=== PATIENT | male | born 1975 | race Caucasian/White ===

== ENCOUNTER 2016-06-12 10:09 | Inpatient (IN) | payer OTHER ==
[~2016-06-12] VITALS: Ht 188 cm; Wt 71.2 kg
--- NOTE | ~2016-06-12 | EKG ---
[place], [place] ELECTROCARDIOGRAM REPORT NAME: NANNETTE ERVIN UNIT #: [id number] ROOM: 422 DOCTOR: JESS POLANCO MD BIRTHDATE: [birth year] DOS: 06/12/2016 TIME: 11:24. Normal sinus rhythm at rate 75. Early repolarization change. Normal EKG. JESS POLANCO MD CM:EKGRPT:ELECTROCARDIOGRAM REPORT [id number] JESS POLANCO MD
--- NOTE | ~2016-06-12 | CON ---
[place], [place] REPORT OF CONSULTATION NAME: NANNETTE ERVIN UNIT #: [id number] ROOM: 422 DOCTOR: RONALD SMITH ED.D (MJ) BIRTHDATE: [birth year] DOS: 06/14/2016 HISTORY OF PRESENT ILLNESS: The patient is a 41-year-old male referred by the hospitalist for psychological evaluation. At the present time, he is a [facility] patient on the 4th floor at [facility]. He states he is presently working at the [employer]. His medical history is pertinent for bipolar 1, alcohol dependence and sciatica. His medications include ProAir, Neurontin, Ativan, Ritalin, Naprosyn, Risperdal, Percocet and Zoloft. He states that he drinks 15-20 beers a day and smokes 3 packs of cigarettes per day plus he uses snuff. This patient was awake, alert and oriented in all 3 spheres. He denies any suicidal ideation or plan, but does get depressed because he relapsed. He has been in the [facility] before and did quite well and was in sobriety for quite sometime and then relapsed after a problem with his ex-girlfriend. I worked with him on guilt issues and getting back to AA meetings. I did talk to [facility] staff and they will setup his meetings with AA. He also followed with Dr. Yoo in the past. In addition, he has [facility] who is his case finisher along with Dr. Abraham, who is his psychiatrist. DIAGNOSES: 1. Bipolar 1, mixed. 2. Alcohol dependence. Thank you very much for this referral. RONALD SMITH ED.D CM:CONSTR:REPORT OF CONSULTATION 1012 06/15/16 0225 interface
[~2016-06-12 10:09] MED LIST: 'PARAFON FORTE500 M1 PO; ATIVAN1 MG PO; BENADRYL25 MG PO; BENADRYL50 MG PO; CELEXA10 MG PO; CHLORDIAZEPOXID25 M1 PO; COGENTIN0.5 MG PO; CYCLOBENZAPRINE10 MG PO; DEPAKOTE500 MG; FLEXERIL5 MG PO; FLUVOXAMINE50 MG PO; GEODON40 MG PO; HALOPERIDOL5 MG PO; HYDROCODONE BIT1 T11 PO; LATU40TA PO; LIDOCAINE VISC100 M2 MM; LORAZEPAM1 MG PO; MONTELUKAST SOD10 MG PO; MOTRIN800 MG PO; Motrin,Rufen800 MG PO; NAPROXEN500 M1 PO; NEURONTIN300 MG PO; NEURONTIN600 MG PO; NORCO 5-325 TA1 EACH PO; PERCOCET 325 MG1 TA5 PO; PERCOCET 325 MG1 TA7 PO; PREDNISONE10 MG PO; PROAIR HFA0.09 MG/AC INH; RISPERDAL0.5 MG PO; RISPERDAL1 M1 PO; RISPERDAL2 M1 PO; RISPERDAL4 MG PO; RITALIN PO; TORADOL10 MG PO; TRAMADOL HCL50 MG PO; VISTARIL50 MG PO
[2016-06-12] MEDS ORDERED: TIZANIDINE HCL4 MG PO (10:12)
[2016-06-12 10:16] VITALS: BP 116/84
[2016-06-12 10:36] LABS: BILIRUBIN 1+ (NEGATIVE); BLOOD TRACE-INTACT (NEGATIVE); CLARITY CLEAR (CLEAR); COLOR YELLOW (YELLOW); GLUCOSE NEGATIVE (NEGATIVE); KETONE TRACE (NEGATIVE); LEUKO ESTERASE NEGATIVE (NEGATIVE); NITRITE NEGATIVE (NEGATIVE); PH 5.5 (5.0-9.0); PROTEIN 1+ (NEGATIVE); SPECIFIC GRAVITY >= 1.030 (1.005-1.030); UROBILINOGEN 0.2 E.U./dl (0.2-1.0)
[2016-06-12 10:48] LABS: MUCOUS 1+; WBC 0-2 wbc/hpf (0-5)
[2016-06-12 10:49] LABS: BACTERIA TRACE; URINE REFLEX COMMENT NO (NO)
[2016-06-12 10:59] LABS: BASO # 0.1 10*3/uL (0.0-0.1); BASO % 0.5 % (0.0-1.0); EOS # 0.1 10*3/uL (0.0-0.4); EOS % 1.1 % (1.0-4.0); HEMATOCRIT 46.3 % (42.0-52.0); HEMOGLOBIN 16.2 g/dl (14.0-18.0); LYMPH # 1.1 10*3/uL (1.3-4.4); LYMPH % 9.2 % (27.0-41.0); MEAN CELL VOLUME 93.9 fl (80.0-94.0); MEAN CORPUSCULAR HGB 32.9 pg (27.0-31.0); MEAN PLATELET VOLUME 9.3 fl (9.6-12.3); MONO # 0.6 10*3/uL (0.1-1.0); MONO % 5.3 % (3.0-9.0); NEUT % 83.6 % (47.0-73.0); PLATELET COUNT AUTOMATED 325 10*3/uL (130-400); RED BLOOD COUNT 4.93 10*6/uL (4.50-5.90); RED CELL DISTRI WIDTH 14.2 % (0-14.5); WHITE BLOOD COUNT 11.9 10*3/uL (4.8-10.8)
[2016-06-12 11:07] LABS: INTERNATIONAL NORM RATIO 0.9 (2.0-3.5)
[2016-06-12 11:15] LABS: ALBUMIN 4.2 gm/dl (3.1-4.5); ALKALINE PHOSPHATASE 67 U/L (45-117); BILIRUBIN, TOTAL 1.1 mg/dl (0.2-1.0); BUN 12 mg/dl (7-24); CARBON DIOXIDE 25 mmol/L (21-32); CHLORIDE 102 mmol/L (98-107); EST GLOM FILT AFRICAN AMERICAN > 60 ml/min; GLUCOSE 98 mg/dL (65-99); MAGNESIUM 2.1 mg/dL (1.5-2.1); SGOT/AST 49 IU/L (3-35); SGPT/ALT 43 U/L (12-78); SODIUM 140 mmol/L (136-145); TOTAL PROTEIN 7.6 gm/dL (6.4-8.2)
[2016-06-12 11:17] LABS: TROPONIN I < 0.015 ng/ml (<0.045)
[2016-06-12 11:21] LABS: THYROID STIM HORMONE (HS) 0.594 uIU/ml (0.358-4.75)
[2016-06-12] MEDS ORDERED: NEURONTIN800 MG PO (14:43)
[2016-06-12] MEDS ORDERED: PERCOCET 325 MG1 TA3 PO (14:45)
[2016-06-12] MEDS ORDERED: ZOLOFT100 MG PO (14:45)
[2016-06-12] MEDS ORDERED: EC NAPROSYN500 MG PO (14:47)
[2016-06-12] MEDS ORDERED: PROVENTIL0.09 MG/A1 INH (14:49)
[2016-06-12] MEDS ORDERED: ATIVAN1 MG PO (14:50)
[2016-06-12 16:00] VITALS: BP 130/73
[2016-06-12 16:53] LABS: URINE AMPHETAMINES < 1000 (1000ng/ml); URINE BARBITURATES < 200 (200ng/ml); URINE COCAINE < 300 (300ng/ml)
[2016-06-12 20:00] VITALS: BP 134/70
[2016-06-13] VITALS: BP 111/50
[2016-06-13 04:00] VITALS: BP 114/78
[2016-06-13 08:00] VITALS: BP 109/61
[2016-06-13 12:00] VITALS: BP 136/84
[2016-06-13 16:00] VITALS: BP 118/84
[2016-06-13] MEDS ORDERED: AMOXICILLIN500 M3 PO (17:41)
[2016-06-13 20:00] VITALS: BP 122/76
[2016-06-14] VITALS: BP 106/71
[2016-06-14 06:15] LABS: ALBUMIN 3.3 gm/dl (3.1-4.5); ALKALINE PHOSPHATASE 57 U/L (45-117); BILIRUBIN, TOTAL 0.8 mg/dl (0.2-1.0); BUN 10 mg/dl (7-24); CARBON DIOXIDE 29 mmol/L (21-32); CHLORIDE 109 mmol/L (98-107); EST GLOM FILT AFRICAN AMERICAN > 60 ml/min; GLUCOSE 98 mg/dL (65-99); POTASSIUM 3.8 mmol/L (3.5-5.1); SGOT/AST 28 IU/L (3-35); SGPT/ALT 40 U/L (12-78); SODIUM 140 mmol/L (136-145); TOTAL PROTEIN 6.1 gm/dL (6.4-8.2)
[2016-06-14 06:18] LABS: BASO # 0.1 10*3/uL (0.0-0.1); BASO % 0.5 % (0.0-1.0); EOS # 0.3 10*3/uL (0.0-0.4); EOS % 2.9 % (1.0-4.0); LYMPH # 2.1 10*3/uL (1.3-4.4); LYMPH % 22.2 % (27.0-41.0); MEAN CORPUSCULAR HGB CONC 33.9 g/dl (33.0-37.0); MEAN PLATELET VOLUME 10.2 fl (9.6-12.3); MONO # 0.7 10*3/uL (0.1-1.0); MONO % 7.6 % (3.0-9.0); NEUT # 6.1 10*3/uL (2.3-7.9); NEUT % 66.6 % (47.0-73.0); PLATELET COUNT AUTOMATED 235 10*3/uL (130-400); RED BLOOD COUNT 4.06 10*6/uL (4.50-5.90); WHITE BLOOD COUNT 9.2 10*3/uL (4.8-10.8)
[2016-06-14 06:25] LABS: HEMATOCRIT 39.5 % (42.0-52.0); HEMOGLOBIN 13.4 g/dl (14.0-18.0); MEAN CELL VOLUME 97.3 fl (80.0-94.0)
[2016-06-14 08:00] VITALS: BP 90/60
[2016-06-14 16:00] VITALS: BP 113/80
[2016-06-14 20:00] VITALS: BP 119/89
[2016-06-15] VITALS: BP 102/61
[2016-06-15 06:03] LABS: BASO # 0.1 10*3/uL (0.0-0.1); BASO % 0.6 % (0.0-1.0); EOS # 0.3 10*3/uL (0.0-0.4); EOS % 3.7 % (1.0-4.0); HEMATOCRIT 39.8 % (42.0-52.0); LYMPH # 2.1 10*3/uL (1.3-4.4); LYMPH % 23.8 % (27.0-41.0); MEAN CELL VOLUME 98.5 fl (80.0-94.0); MEAN CORPUSCULAR HGB 32.2 pg (27.0-31.0); MEAN CORPUSCULAR HGB CONC 32.7 g/dl (33.0-37.0); MONO # 0.7 10*3/uL (0.1-1.0); NEUT # 5.7 10*3/uL (2.3-7.9); NEUT % 63.6 % (47.0-73.0); PLATELET COUNT AUTOMATED 238 10*3/uL (130-400); RED BLOOD COUNT 4.04 10*6/uL (4.50-5.90); RED CELL DISTRI WIDTH 14.1 % (0-14.5)
[2016-06-15 08:00] VITALS: BP 104/80
[2016-06-15] MEDS ORDERED: FAMOTIDINE20 M1 PO (08:26)
[2016-06-15] MEDS ORDERED: PANTOPRAZOLE SO40 MG PO (08:26)
[2016-06-15] MEDS ORDERED: ATARAX,VISTARIL50 MG PO (08:26)
[2016-06-15] MEDS ORDERED: TRAZODONE50 MG PO (08:26)
[2016-06-15] MEDS ORDERED: ZOFRAN 4 MG ED2 TAB PO (08:26)
[2016-06-15 12:00] VITALS: BP 125/85
== END 2016-06-15 13:30 | disposition home or self-care (01) | DRG 897 ==
LOC: ED 10:09 → EDHOLD 13:49 → 4E 14:07
PROVIDERS: Emergency Medicine; Internal Medicine; Internal Medicine Hospice and Palliative Medicine; Student in an Organized Health Care Education/Training Program
DX: F10.230 Alcohol dependence with withdrawal, uncomplicated (principal); F25.9 Schizoaffective disorder, unspecified; D53.9 Nutritional anemia, unspecified; R10.13 Epigastric pain; F41.9 Anxiety disorder, unspecified; R00.0 Tachycardia, unspecified; D72.829 Elevated white blood cell count, unspecified; J45.909 Unspecified asthma, uncomplicated; F31.9 Bipolar disorder, unspecified; F17.200 Nicotine dependence, unspecified, uncomplicated; F12.10 Cannabis abuse, uncomplicated; K04.7 Periapical abscess without sinus; G89.29 Other chronic pain; M54.42 Lumbago with sciatica, left side; F60.9 Personality disorder, unspecified; Z84.89 Family history of other specified conditions; Z79.899 Other long term (current) drug therapy

== ENCOUNTER 2016-08-17 15:48 | Emergency (ER) | payer OTHER ==
[~2016-08-17] VITALS: Ht 187.9 cm; Wt 77.1 kg
[~2016-08-17 15:48] MED LIST changes: +AMOXICILLIN500 M3 PO; +ATARAX,VISTARIL50 MG PO; +EC NAPROSYN500 MG PO; +FAMOTIDINE20 M1 PO; +NEURONTIN800 MG PO; +PANTOPRAZOLE SO40 MG PO; +PERCOCET 325 MG1 TA3 PO; +PROVENTIL0.09 MG/A1 INH; +TIZANIDINE HCL4 MG PO; +TRAZODONE50 MG PO; +ZOFRAN 4 MG ED2 TAB PO; +ZOLOFT100 MG PO
[2016-08-17] MEDS ORDERED: PERCOCET 325 MG1 TA2 PO (16:38)
[2016-08-17] MEDS ORDERED: CEPHALEXIN500 M1 PO (17:09)
[2016-08-18] MEDS ORDERED: RISPERDAL2 M1 PO (16:37)
== END 2016-08-17 16:43 | disposition home or self-care (01) ==
LOC: ED 15:48
DX: T23.201A Burn of second degree of right hand, unspecified site, initial encounter (principal); T23.202A Burn of second degree of left hand, unspecified site, initial encounter; F17.210 Nicotine dependence, cigarettes, uncomplicated; Z79.899 Other long term (current) drug therapy; X08.8XXA Exposure to other specified smoke, fire and flames, initial encounter; Y93.G2 Activity, grilling and smoking food; Y92.023 Bedroom in mobile home as the place of occurrence of the external cause; Y99.9 Unspecified external cause status

== ENCOUNTER 2016-08-18 16:18 | Emergency (ER) | payer OTHER ==
[~2016-08-18] VITALS: Ht 187.9 cm; Wt 77.1 kg
[~2016-08-18 16:18] MED LIST changes: +CEPHALEXIN500 M1 PO; +PERCOCET 325 MG1 TA2 PO
[2016-08-18] MEDS ORDERED: RISPERDAL2 M1 PO (16:37)
== END 2016-08-18 17:19 | disposition home or self-care (01) ==
LOC: ED 16:18
DX: T23.202D Burn of second degree of left hand, unspecified site, subsequent encounter (principal); T23.201D Burn of second degree of right hand, unspecified site, subsequent encounter; F17.210 Nicotine dependence, cigarettes, uncomplicated; F12.10 Cannabis abuse, uncomplicated; Z79.899 Other long term (current) drug therapy; X08.8XXD Exposure to other specified smoke, fire and flames, subsequent encounter

== ENCOUNTER → 2016-08-21 | Outpatient (CLI) | payer OTHER | LOC: WOUNDCARE 02:06 | DX: T23.6 Corrosion of second degree of wrist and hand (principal); T32.0 Corrosions involving less than 10% of body surface; K21.9 Gastro-esophageal reflux disease without esophagitis; M19.90 Unspecified osteoarthritis, unspecified site; F32.9 Major depressive disorder, single episode, unspecified; J45.909 Unspecified asthma, uncomplicated; F12.10 Cannabis abuse, uncomplicated; F41.9 Anxiety disorder, unspecified; F17.210 Nicotine dependence, cigarettes, uncomplicated; Z72.89 Other problems related to lifestyle; X08.8XXD Exposure to other specified smoke, fire and flames, subsequent encounter ==

== ENCOUNTER → 2016-08-28 | Outpatient (CLI) | payer OTHER ==
--- NOTE | ~2016-08-28 | PR ---
[place], [place] PROGRESS NOTE NAME: NANNETTE ERVIN [facility] #: [id number] UNIT #: [id number] ROOM: DOCTOR: CHASITY WeiSILVINA BIRTHDATE: [birth year] DOS: 08/28/2016 LATE ENTRY NOTE CHIEF COMPLAINT: Liu of the hands. HISTORY OF PRESENT ILLNESS: This is a 41-year-old male who was seen approximately a week ago for multiple second-degree liu of his bilateral hands, which occurred while he fell asleep smoking a cigarette. He had over multiple wounds on several of his digits that were seen last week for the first time, several of the blistered areas had remained intact and were left alone. There was one area that was debrided that had already opened up and left necrotic tissue lying there that was debrided last week, otherwise the blisters have remained intact since last week and the patient comes in without any specific new complaints. He is using TheraHoney and Adaptic. We did want home health to come and see the patient. However, since the patient is not homebound, he was not felt to be a candidate for home therapy, so he is doing the dressing changes on his own. He also is a smoker and continues to smoke. OBJECTIVE: VITAL SIGNS: Stable. Temperature 97.8, pulse 100, respirations 20, blood pressure is 118/80. He has several different wounds. Wound #1 is located on the second digit of the left hand and is measuring 2.6 x 2.5 x 0.1, it is remaining intact and is much smaller. The blistered area, there is no sign of infection. Wound #2 is also measuring smaller at 2.2 x 2.5 x 0.1 and that is located on the third digit of the left hand. Wound #3 is located on the left hand and is on the fourth digit and that wound is also measuring smaller at 3 x 3 x 0.1. Wound #4 is measuring smaller on the fifth digit of the left hand, it is measuring 1.2 x 1.1 x 0.1, that looks good. Wound #6 is located on the tip of the right hand second digit and that is measuring 2 x 3.8 x 0.1 and is remaining intact. Wound #7 is located on the third digit of the right hand and is measuring slightly smaller at 7 x 5.5 x 0.1. Wound #8 is measuring smaller at 3.4 x 3 x 0.1, looks good. Wound #9 is also measuring the same and the area is still left pretty much intact at 5.2 x 2.5 x 0.1. No procedure was done. ASSESSMENT AND PLAN: Multiple second-degree liu of bilateral hands. We will continue to keep the blistered areas intact as much as possible. Continue with TheraHoney and Adaptic. The patient is to be off of work until he has had more healing. Follow up in one week. [place], [place] PROGRESS NOTE NAME: NANNETTE ERVIN UNIT #: [id number] ROOM: DOCTOR: SILVINA GASPAR M.D. BIRTHDATE: [birth year] SILVINA GASPAR MD CM:SHEILA [id number] SILVINA GASPAR M.D. 09/18/16 1138 interface
== END ==
LOC: WOUNDCARE 02:13
DX: T23.231D Burn of second degree of multiple right fingers (nail), not including thumb, subsequent encounter (principal); T23.232D Burn of second degree of multiple left fingers (nail), not including thumb, subsequent encounter; F17.210 Nicotine dependence, cigarettes, uncomplicated; T31.0 Burns involving less than 10% of body surface; X08.8XXD Exposure to other specified smoke, fire and flames, subsequent encounter

== ENCOUNTER → 2016-09-04 | Outpatient (CLI) | payer OTHER | LOC: WOUNDCARE 03:37 | DX: T23.231D Burn of second degree of multiple right fingers (nail), not including thumb, subsequent encounter (principal); T23.232D Burn of second degree of multiple left fingers (nail), not including thumb, subsequent encounter; X08.8XXD Exposure to other specified smoke, fire and flames, subsequent encounter ==

== ENCOUNTER → 2016-09-18 | Outpatient (CLI) | payer OTHER ==
--- NOTE | ~2016-09-18 | PR ---
[place], [place] PROGRESS NOTE NAME: NANNETTE ERVIN [facility] #: [id number] UNIT #: [id number] ROOM: DOCTOR: CHASITY WeiSILVINA BIRTHDATE: [birth year] DOS: 09/18/2016 CHIEF COMPLAINT: Followup of liu. HISTORY OF PRESENT ILLNESS: The patient has suffered multiple liu to both of his hands while he fell asleep smoking cigarettes. He has [facility] 4 weeks now. He comes in today and states that his wounds appear healed. They are not open, not draining and are doing quite well. He does complain of some funny feeling in the third digit on his right hand. He states at times that objects are difficult to slat pickler and squeeze and he has some difficulty with fine motor skills on this right hand. OBJECTIVE: VITAL SIGNS: Temperature is 98.5, pulse 90, respirations 20 and blood pressure is 110/80. SKIN: The wounds are healed and look nice and with a very minimal scar noted on the third digit of the right hand, but otherwise it looks very good. ASSESSMENT AND PLAN: We will go ahead and discharge the patient. He can use a moisturizer as needed and I did suggest that he perhaps get some sort of a therapy ball to squeeze as many times a day as he can and to consider doing some outpatient physical therapy for this. Otherwise, the wounds are healed and we will discharge the patient from the [facility] Clinic. SILVINA GASPAR MD CM:SHEILA [phone] SILVINA GASPAR M.D. 09/18/16 113 interface
== END ==
LOC: WOUNDCARE 02:48
DX: T23.231D Burn of second degree of multiple right fingers (nail), not including thumb, subsequent encounter (principal); T23.232D Burn of second degree of multiple left fingers (nail), not including thumb, subsequent encounter; F17.210 Nicotine dependence, cigarettes, uncomplicated; X08.8XXD Exposure to other specified smoke, fire and flames, subsequent encounter

== ENCOUNTER 2016-12-02 18:07 | Emergency (ER) | payer OTHER ==
[~2016-12-02] VITALS: Ht 187.9 cm; Wt 77.1 kg
[2016-12-02] MEDS ORDERED: CLINDAMYCIN150 MG PO (18:37)
== END 2016-12-02 22:49 | disposition home or self-care (01) ==
LOC: ED 18:07
DX: S01.511A Laceration without foreign body of lip, initial encounter (principal); S80.212A Abrasion, left knee, initial encounter; S80.812A Abrasion, left lower leg, initial encounter; S60.811A Abrasion of right wrist, initial encounter; S40.811A Abrasion of right upper arm, initial encounter; F17.200 Nicotine dependence, unspecified, uncomplicated; F12.10 Cannabis abuse, uncomplicated; J45.909 Unspecified asthma, uncomplicated; Z79.899 Other long term (current) drug therapy; W19.XXXA Unspecified fall, initial encounter; Y93.89 Activity, other specified; Y92.89 Other specified places as the place of occurrence of the external cause; Y99.9 Unspecified external cause status

== ENCOUNTER 2017-01-19 18:08 | Emergency (ER) | payer OTHER ==
[~2017-01-19] VITALS: Ht 187.9 cm; Wt 77.1 kg
--- NOTE | ~2017-01-19 | EKG ---
[place], [place] ELECTROCARDIOGRAM REPORT NAME: NANNETTE ERVIN UNIT #: [id number] ROOM: DOCTOR: JOJO GOLDSTEIN,DAVID BIRTHDATE: [birth year] DOS: 01/19/2017 TIME: 1812 hours. IMPRESSION: 1. Sinus rhythm, sinus tachycardia. 2. Right atrial enlargement. 3. Nonspecific ST-T changes. DAVID URIBE MD CM:EKGRPT:ELECTROCARDIOGRAM REPORT [id number] DAVID URIBE MD
[~2017-01-19 18:08] MED LIST changes: +CLINDAMYCIN150 MG PO
[2017-01-19 18:21] LABS: BASO % 0.2 % (0.0-1.0); EOS # 0.3 10*3/uL (0.0-0.4); EOS % 2.2 % (1.0-4.0); HEMATOCRIT 39.8 % (42.0-52.0); HEMOGLOBIN 13.5 g/dl (14.0-18.0); LYMPH # 2.2 10*3/uL (1.3-4.4); LYMPH % 17.5 % (27.0-41.0); MEAN CELL VOLUME 96.6 fl (80.0-94.0); MEAN CORPUSCULAR HGB 32.8 pg (27.0-31.0); MEAN CORPUSCULAR HGB CONC 33.9 g/dl (33.0-37.0); MEAN PLATELET VOLUME 9.2 fl (9.6-12.3); MONO # 0.8 10*3/uL (0.1-1.0); MONO % 6.6 % (3.0-9.0); NEUT # 9.2 10*3/uL (2.3-7.9); NEUT % 73.1 % (47.0-73.0); PLATELET COUNT AUTOMATED 310 10*3/uL (130-400); RED BLOOD COUNT 4.12 10*6/uL (4.50-5.90); RED CELL DISTRI WIDTH 13.8 % (0-14.5); WHITE BLOOD COUNT 12.6 10*3/uL (4.8-10.8)
[2017-01-19 18:31] LABS: ACT PARTIAL THROMBO TIME 26.3 SECONDS (20.8-31.5); INTERNATIONAL NORM RATIO 0.9 (2.0-3.5)
[2017-01-19 18:35] LABS: LIPASE 91 U/L (73-393)
[2017-01-19 18:37] LABS: ALBUMIN 3.6 gm/dl (3.1-4.5); ALKALINE PHOSPHATASE 63 U/L (45-117); BUN 7 mg/dl (7-24); CHLORIDE 105 mmol/L (98-107); CREATININE 0.84 mg/dL (0.70-1.30); POTASSIUM 3.9 mmol/L (3.5-5.1); SGOT/AST 18 IU/L (3-35); SGPT/ALT 23 U/L (12-78); SODIUM 138 mmol/L (136-145); TOTAL PROTEIN 7.2 gm/dL (6.4-8.2)
[2017-01-19 18:38] LABS: ETHYL ALCOHOL < 3.0 mg/dl (<3); TROPONIN I < 0.015 ng/ml (<0.045)
== END 2017-01-19 19:15 | disposition left against medical advice (07) ==
LOC: ED 18:08
PROVIDERS: Emergency Medicine
DX: R07.9 Chest pain, unspecified (principal); F17.200 Nicotine dependence, unspecified, uncomplicated; J45.909 Unspecified asthma, uncomplicated; Z79.899 Other long term (current) drug therapy

== ENCOUNTER 2017-03-12 15:36 | Inpatient (IN) | payer OTHER ==
[~2017-03-12] VITALS: Ht 187.9 cm; Wt 76.3 kg
--- NOTE | ~2017-03-12 | CON ---
[place], [place] REPORT OF CONSULTATION NAME: NANNETTE ERVIN UNIT #: [id number] ROOM: [place] [address] DOCTOR: RONALD SMITH ED.DMJ) BIRTHDATE: [birth year] DOS: 03/13/2017 The patient is a 42-year-old male referred by the hospitalist following a threat to commit suicide. This patient is presently in the Intensive Care Unit at [facility]. He is on SSI. His medical history is pertinent for bipolar I disorder, asthma, degenerative joint disease, degenerative disk disease, alcohol dependence, asthma. His medications include trazodone, Zoloft, Risperdal, Ritalin, Ativan, Proventil, ProAir and gabapentin. He has been drinking 20-30 beers per day. He also smokes marijuana. In addition, he smokes 3 packs of cigarettes per day. This patient was awake, alert and oriented in all three spheres. He was suicidal, threatening to shoot himself, but today, he states he is not really suicidal, but needs to return to work. He is clearly going to go into withdrawal because of the amount of alcohol he has been drinking and he is under a pink slip because he was suicidal. He follows with Boo Dorado, a family service caseworker at the counseling center along with Dr. Abraham, who is a psychiatrist at the counseling center. The patient's family physician is Dr. Neal. The patient has been drinking significant amounts recently and is not taking his medications for his bipolar disorder. I did suggest to the nursing service as well as the hospitalist team that he needed to stay until he withdrew from alcohol. I did speak with the [facility] and they will most likely accept him as a patient again. He clearly cannot be discharged at this point in time because of the amounts of benzodiazepines he is taking to prevent withdrawal. He needs to remain here for several more days until he is completely detoxed at which point he should follow up outpatient for his mental health and drug and alcohol counseling. DIAGNOSES: 1. Bipolar 1 - mixed. 2. Alcohol dependence. RECOMMENDATIONS: 1. In my opinion, the pink slip should be continued until he is more medically stable. 2. The patient would benefit from the [facility]. Thank you very much for this consult. [place], [place] REPORT OF CONSULTATION NAME: NANNETTE ERVIN UNIT #: [id number] ROOM: [place] [address] DOCTOR: RONALD SMITH ED.D) BIRTHDATE: [birth year] RONALD SMITH ED.D CM:CONSTR:REPORT OF CONSULTATION 1112 03/13/17 1159 interface
[2017-03-12 15:49] VITALS: BP 123/83
[2017-03-12 16:24] LABS: BASO % 0.4 % (0.0-1.0); EOS # 0.4 10*3/uL (0.0-0.4); EOS % 3.8 % (1.0-4.0); HEMATOCRIT 40.9 % (42.0-52.0); LYMPH # 1.5 10*3/uL (1.3-4.4); LYMPH % 13.8 % (27.0-41.0); MEAN CELL VOLUME 94.5 fl (80.0-94.0); MEAN CORPUSCULAR HGB 32.3 pg (27.0-31.0); MEAN CORPUSCULAR HGB CONC 34.2 g/dl (33.0-37.0); MEAN PLATELET VOLUME 9.5 fl (9.6-12.3); MONO # 0.7 10*3/uL (0.1-1.0); MONO % 6.3 % (3.0-9.0); NEUT # 8.1 10*3/uL (2.3-7.9); PLATELET COUNT AUTOMATED 148 10*3/uL (130-400); RED BLOOD COUNT 4.33 10*6/uL (4.50-5.90); RED CELL DISTRI WIDTH 15.2 % (0-14.5); WHITE BLOOD COUNT 10.8 10*3/uL (4.8-10.8)
[2017-03-12 16:49] LABS: ALBUMIN 3.4 gm/dl (3.1-4.5); ALKALINE PHOSPHATASE 81 U/L (45-117); BUN 8 mg/dl (7-24); CHLORIDE 109 mmol/L (98-107); CREATININE 0.68 mg/dL (0.70-1.30); POTASSIUM 3.7 mmol/L (3.5-5.1); SGOT/AST 247 IU/L (3-35); SODIUM 143 mmol/L (136-145); TOTAL PROTEIN 6.4 gm/dL (6.4-8.2)
[2017-03-12 16:53] LABS: SGPT/ALT 2827 U/L (12-78)
[2017-03-12 17:09] LABS: BILIRUBIN NEGATIVE (NEGATIVE); BLOOD TRACE-INTACT (NEGATIVE); CLARITY SL CLOUDY (CLEAR); COLOR YELLOW (YELLOW); GLUCOSE NEGATIVE (NEGATIVE); KETONE NEGATIVE (NEGATIVE); LEUKO ESTERASE NEGATIVE (NEGATIVE); NITRITE NEGATIVE (NEGATIVE)
[2017-03-12 17:15] LABS: BACTERIA TRACE; EPITHELIAL CELLS 0-3; MUCOUS 2+; WBC 0-2 wbc/hpf (0-5)
[2017-03-12 17:17] LABS: URINE AMPHETAMINES < 1000 (1000ng/ml); URINE BARBITURATES < 200 (200ng/ml); URINE BENZODIAZEPINES < 200 (200ng/ml); URINE CANNABINOIDS (THC) > 50 (50ng/ml); URINE COCAINE < 300 (300ng/ml); URINE METHADONE < 300 (300ng/ml); URINE OPIATES < 300 (300ng/ml)
[2017-03-12 17:23] LABS: URINE PHENCYCLIDINE < 25 (25ng/ml)
[2017-03-12 17:58] LABS: ACT PARTIAL THROMBO TIME 25.3 SECONDS (20.8-31.5); INTERNATIONAL NORM RATIO 1.1 (2.0-3.5)
[2017-03-12 19:01] VITALS: BP 129/84
[2017-03-12 19:30] VITALS: BP 132/90
[2017-03-12] MEDS ORDERED: PERCOCET 7.5-31 EACH PO (20:04)
[2017-03-12] MEDS ORDERED: DEXTROAMPH SACC30 MG PO (20:05)
[2017-03-12] MEDS ORDERED: ZANAFLEX4 M2 PO (20:06)
[2017-03-12] MEDS ORDERED: PROVENTIL HFA6.7 GM INH (20:12)
[2017-03-12] MEDS ORDERED: ADDERALL 30 MG30 MG PO (22:03)
[2017-03-13] VITALS: BP 130/80
[2017-03-13 04:00] VITALS: BP 114/78
[2017-03-13 05:39] LABS: INTERNATIONAL NORM RATIO 1.2 (2.0-3.5)
[2017-03-13 06:03] LABS: BASO # 0.1 10*3/uL (0.0-0.1); BASO % 0.5 % (0.0-1.0); EOS # 0.5 10*3/uL (0.0-0.4); EOS % 4.6 % (1.0-4.0); HEMOGLOBIN 12.6 g/dl (14.0-18.0); LYMPH # 1.9 10*3/uL (1.3-4.4); LYMPH % 17.5 % (27.0-41.0); MEAN CELL VOLUME 94.4 fl (80.0-94.0); MEAN CORPUSCULAR HGB 32.1 pg (27.0-31.0); MEAN CORPUSCULAR HGB CONC 34.1 g/dl (33.0-37.0); MEAN PLATELET VOLUME 10.3 fl (9.6-12.3); MONO # 1.1 10*3/uL (0.1-1.0); MONO % 10.3 % (3.0-9.0); NEUT # 7.1 10*3/uL (2.3-7.9); NEUT % 66.1 % (47.0-73.0); PLATELET COUNT AUTOMATED 148 10*3/uL (130-400); RED BLOOD COUNT 3.92 10*6/uL (4.50-5.90); RED CELL DISTRI WIDTH 15.3 % (0-14.5); WHITE BLOOD COUNT 10.7 10*3/uL (4.8-10.8)
[2017-03-13 06:04] LABS: ALBUMIN 2.8 gm/dl (3.1-4.5); ALKALINE PHOSPHATASE 69 U/L (45-117); BUN 11 mg/dl (7-24); CHLORIDE 109 mmol/L (98-107); CHOLESTEROL 148 mg/dL (<200); FREE T4 0.95 ng/dl (0.76-1.46); HDL CHOLESTEROL 42 mg/dl (40-60); LDL CHOLESTEROL 87 mg/dL (9-159); PHOSPHOROUS 4.1 mg/dL (2.5-4.9); POTASSIUM 3.6 mmol/L (3.5-5.1); SGOT/AST 139 IU/L (3-35); SODIUM 143 mmol/L (136-145); TOTAL PROTEIN 5.5 gm/dL (6.4-8.2); TRIGLYCERIDES 93 mg/dl (<150); VLDL CHOLESTEROL 19 mg/dL (6-40)
[2017-03-13 06:32] LABS: SGPT/ALT 2128 U/L (12-78)
[2017-03-13 07:14] LABS: VITAMIN D, 25-HYDROXY 19.2 ng/mL (30-100)
[2017-03-13 08:00] VITALS: BP 123/72
[2017-03-13 12:00] VITALS: BP 124/87
[2017-03-13 13:05] LABS: ALBUMIN 3.1 gm/dl (3.1-4.5); ALKALINE PHOSPHATASE 79 U/L (45-117); BUN 12 mg/dl (7-24); CHLORIDE 107 mmol/L (98-107); CREATININE 0.71 mg/dL (0.70-1.30); POTASSIUM 3.6 mmol/L (3.5-5.1); SGOT/AST 122 IU/L (3-35); SODIUM 142 mmol/L (136-145); TOTAL PROTEIN 5.8 gm/dL (6.4-8.2)
[2017-03-13 13:06] LABS: INTERNATIONAL NORM RATIO 1.1 (2.0-3.5)
[2017-03-13 13:11] LABS: SGPT/ALT 2115 U/L (12-78)
[2017-03-13 16:00] VITALS: BP 144/84
[2017-03-13 20:00] VITALS: BP 121/80
[2017-03-14] VITALS: BP 104/74
[2017-03-14 04:00] VITALS: BP 101/54
[2017-03-14 05:59] LABS: ALBUMIN 2.7 gm/dl (3.1-4.5); ALKALINE PHOSPHATASE 61 U/L (45-117); BUN 11 mg/dl (7-24); CHLORIDE 110 mmol/L (98-107); CREATININE 0.68 mg/dL (0.70-1.30); SGOT/AST 84 IU/L (3-35); SODIUM 144 mmol/L (136-145); TOTAL PROTEIN 5.4 gm/dL (6.4-8.2)
[2017-03-14 06:02] LABS: BASO # 0.1 10*3/uL (0.0-0.1); BASO % 0.5 % (0.0-1.0); EOS # 0.5 10*3/uL (0.0-0.4); EOS % 5.1 % (1.0-4.0); HEMATOCRIT 36.1 % (42.0-52.0); HEMOGLOBIN 12.2 g/dl (14.0-18.0); LYMPH % 18.6 % (27.0-41.0); MEAN CELL VOLUME 96.5 fl (80.0-94.0); MEAN CORPUSCULAR HGB 32.6 pg (27.0-31.0); MEAN CORPUSCULAR HGB CONC 33.8 g/dl (33.0-37.0); MEAN PLATELET VOLUME 10.4 fl (9.6-12.3); MONO # 1.3 10*3/uL (0.1-1.0); NEUT # 6.7 10*3/uL (2.3-7.9); NEUT % 63.2 % (47.0-73.0); PLATELET COUNT AUTOMATED 181 10*3/uL (130-400); RED BLOOD COUNT 3.74 10*6/uL (4.50-5.90); RED CELL DISTRI WIDTH 15.4 % (0-14.5); WHITE BLOOD COUNT 10.5 10*3/uL (4.8-10.8)
[2017-03-14 06:30] LABS: SGPT/ALT 1504 U/L (12-78)
[2017-03-14 08:00] VITALS: BP 131/81
[2017-03-14 09:10] LABS: HEPATITIS B SURFACE AG Negative (Negative); HEPATITIS C VIRUS ANTIBODY <0.1 s/co (0.0-0.9)
[2017-03-14 12:00] VITALS: BP 125/81
[2017-03-14 16:00] VITALS: BP 124/78
[2017-03-14 20:00] VITALS: BP 124/80
[2017-03-15] VITALS: BP 127/88
[2017-03-15 08:00] VITALS: BP 108/66
[2017-03-15 08:24] LABS: ALBUMIN 2.8 gm/dl (3.1-4.5); ALKALINE PHOSPHATASE 68 U/L (45-117); BUN 10 mg/dl (7-24); CHLORIDE 108 mmol/L (98-107); CREATININE 0.58 mg/dL (0.70-1.30); POTASSIUM 3.9 mmol/L (3.5-5.1); SGOT/AST 52 IU/L (3-35); SODIUM 143 mmol/L (136-145); TOTAL PROTEIN 5.6 gm/dL (6.4-8.2)
[2017-03-15 08:42] LABS: SGPT/ALT 1193 U/L (12-78)
[2017-03-15 12:00] VITALS: BP 127/79
[2017-03-15 16:00] VITALS: BP 124/78
[2017-03-15 20:00] VITALS: BP 121/80
[2017-03-16] VITALS: BP 122/85
[2017-03-16 08:00] VITALS: BP 120/82
[2017-03-16 08:44] LABS: ALBUMIN 3.6 gm/dl (3.1-4.5); ALKALINE PHOSPHATASE 68 U/L (45-117); BUN 15 mg/dl (7-24); CHLORIDE 103 mmol/L (98-107); CREATININE 0.78 mg/dL (0.70-1.30); POTASSIUM 4.3 mmol/L (3.5-5.1); SGOT/AST 46 IU/L (3-35); SODIUM 138 mmol/L (136-145); TOTAL PROTEIN 6.7 gm/dL (6.4-8.2)
[2017-03-16 08:49] LABS: SGPT/ALT 1091 U/L (12-78)
[2017-03-16] MEDS ORDERED: NATURE'S BLEND F1 MG PO (09:09)
[2017-03-16] MEDS ORDERED: VITAMIN D-32000 UNI1 PO (09:09)
[2017-03-16] MEDS ORDERED: NATURE'S BLEND100 M2 PO (09:09)
== END 2017-03-16 10:25 | disposition home or self-care (01) | DRG 917 ==
LOC: ED 15:36 → ICCU 17:41 → 4E 17:41 → EDHOLD 17:41 → ICCU 18:18 → 4E 03-14 13:16
PROVIDERS: Emergency Medicine; Family Medicine; Internal Medicine; Internal Medicine Hospice and Palliative Medicine
DX: T39.1X1A Poisoning by 4-Aminophenol derivatives, accidental (unintentional), initial encounter (principal); R65.11 Systemic inflammatory response syndrome (SIRS) of non-infectious origin with acute organ dysfunction; E87.8 Other disorders of electrolyte and fluid balance, not elsewhere classified; R45.851 Suicidal ideations; E44.0 Moderate protein-calorie malnutrition; F10.239 Alcohol dependence with withdrawal, unspecified; F31.60 Bipolar disorder, current episode mixed, unspecified; K70.10 Alcoholic hepatitis without ascites; E83.41 Hypermagnesemia; D72.810 Lymphocytopenia; R73.9 Hyperglycemia, unspecified; R74.0 Nonspecific elevation of levels of transaminase and lactic acid dehydrogenase [LDH]; E80.6 Other disorders of bilirubin metabolism; F10.220 Alcohol dependence with intoxication, uncomplicated; R00.0 Tachycardia, unspecified; J45.909 Unspecified asthma, uncomplicated; F25.0 Schizoaffective disorder, bipolar type; F12.10 Cannabis abuse, uncomplicated; F41.9 Anxiety disorder, unspecified; K76.0 Fatty (change of) liver, not elsewhere classified; M54.31 Sciatica, right side; M54.32 Sciatica, left side; M19.90 Unspecified osteoarthritis, unspecified site; D53.9 Nutritional anemia, unspecified; E55.9 Vitamin D deficiency, unspecified; Z79.899 Other long term (current) drug therapy; Z83.2 Family history of diseases of the blood and blood-forming organs and certain disorders involving the immune mechanism; Z84.89 Family history of other specified conditions; Z72.0 Tobacco use; Z71.6 Tobacco abuse counseling; Y92.89 Other specified places as the place of occurrence of the external cause; Z68.21 Body mass index [BMI] 21.0-21.9, adult

== ENCOUNTER 2017-09-28 17:14 | Emergency (ER) | payer SELFPAY ==
[~2017-09-28] VITALS: Ht 187.9 cm; Wt 86.2 kg
[~2017-09-28 17:14] MED LIST changes: +ADDERALL 30 MG30 MG PO; +DEXTROAMPH SACC30 MG PO; +NATURE'S BLEND F1 MG PO; +NATURE'S BLEND100 M2 PO; +PERCOCET 7.5-31 EACH PO; +PROVENTIL HFA6.7 GM INH; +VITAMIN D-32000 UNI1 PO; +ZANAFLEX4 M2 PO
== END 2017-09-28 18:45 | disposition home or self-care (01) ==
LOC: ED 17:14
DX: S93.692A Other sprain of left foot, initial encounter (principal); S90.821A Blister (nonthermal), right foot, initial encounter; F17.200 Nicotine dependence, unspecified, uncomplicated; J45.909 Unspecified asthma, uncomplicated; E78.00 Pure hypercholesterolemia, unspecified; F12.10 Cannabis abuse, uncomplicated; Z79.899 Other long term (current) drug therapy; X50.0XXA Overexertion from strenuous movement or load, initial encounter; Y93.89 Activity, other specified; Y92.69 Other specified industrial and construction area as the place of occurrence of the external cause; Y99.9 Unspecified external cause status

== ENCOUNTER 2017-12-07 14:12 | Emergency (ER) | payer SELFPAY ==
[~2017-12-07] VITALS: Wt 77.1 kg
[2017-12-07 14:29] LABS: BASO # 0.1 10*3/uL (0.0-0.1); BASO % 0.6 % (0.0-1.0); EOS # 0.1 10*3/uL (0.0-0.4); EOS % 0.7 % (1.0-4.0); LYMPH # 1.6 10*3/uL (1.3-4.4); LYMPH % 16.7 % (27.0-41.0); MEAN CELL VOLUME 94.7 fl (80.0-94.0); MEAN CORPUSCULAR HGB 32.2 pg (27.0-31.0); MEAN PLATELET VOLUME 9.2 fl (9.6-12.3); MONO # 1.3 10*3/uL (0.1-1.0); MONO % 12.9 % (3.0-9.0); NEUT # 6.7 10*3/uL (2.3-7.9); NEUT % 68.2 % (47.0-73.0); PLATELET COUNT AUTOMATED 262 10*3/uL (130-400); RED BLOOD COUNT 5.28 10*6/uL (4.50-5.90); WHITE BLOOD COUNT 9.8 10*3/uL (4.8-10.8)
[2017-12-07 14:39] LABS: URINE AMPHETAMINES < 1000 (1000ng/ml); URINE BARBITURATES < 200 (200ng/ml); URINE BENZODIAZEPINES < 200 (200ng/ml); URINE CANNABINOIDS (THC) < 50 (50ng/ml); URINE COCAINE < 300 (300ng/ml); URINE METHADONE < 300 (300ng/ml); URINE OPIATES < 300 (300ng/ml)
[2017-12-07 14:44] LABS: BUN 6 mg/dl (7-24); CHLORIDE 100 mmol/L (98-107); CREATININE 0.65 mg/dL (0.70-1.30); POTASSIUM 4.1 mmol/L (3.5-5.1); SODIUM 138 mmol/L (136-145)
[2017-12-07 14:47] LABS: URINE PHENCYCLIDINE < 25 (25ng/ml)
[2017-12-07 14:52] LABS: BILIRUBIN NEGATIVE (NEGATIVE); BLOOD NEGATIVE (NEGATIVE); CLARITY CLEAR (CLEAR); COLOR YELLOW (YELLOW); GLUCOSE NEGATIVE (NEGATIVE); KETONE NEGATIVE (NEGATIVE); LEUKO ESTERASE NEGATIVE (NEGATIVE); NITRITE NEGATIVE (NEGATIVE); PH 6.5 (5.0-9.0); SPECIFIC GRAVITY <= 1.005 (1.005-1.030); UROBILINOGEN 0.2 E.U./dl (0.2-1.0)
[2017-12-07 15:07] LABS: ACETAMINOPHEN (TYLENOL) < 5.0 ug/ml (10-30)
[2017-12-07 15:14] LABS: BACTERIA TRACE; EPITHELIAL CELLS 0-2; WBC 0-2 wbc/hpf (0-5)
== END 2017-12-08 10:58 | disposition home or self-care (01) ==
LOC: ED 14:12
PROVIDERS: Emergency Medicine
DX: F10.10 Alcohol abuse, uncomplicated (principal); R45.851 Suicidal ideations; F31.9 Bipolar disorder, unspecified; F17.200 Nicotine dependence, unspecified, uncomplicated; J45.909 Unspecified asthma, uncomplicated

== ENCOUNTER → 2018-08-16 | Outpatient (CLI) | payer OTHER | END | disposition home or self-care (01) | LOC: RAD 10:25 | DX: J43.9 Emphysema, unspecified (principal); J45.909 Unspecified asthma, uncomplicated; Z87.891 Personal history of nicotine dependence ==

== ENCOUNTER 2018-11-22 09:37 | Inpatient (IN) | payer OTHER ==
[~2018-11-22] VITALS: Ht 187.9 cm; Wt 76.3 kg
[2018-11-22 11:41] LABS: BASO % 0.4 % (0.0-1.0); EOS # 0.1 10*3/uL (0.0-0.4); EOS % 1.6 % (1.0-4.0); HEMATOCRIT 46.5 % (42.0-52.0); HEMOGLOBIN 15.6 g/dl (14.0-18.0); LYMPH # 1.2 10*3/uL (1.3-4.4); LYMPH % 15.3 % (27.0-41.0); MEAN CELL VOLUME 97.5 fl (80.0-94.0); MEAN CORPUSCULAR HGB 32.7 pg (27.0-31.0); MEAN CORPUSCULAR HGB CONC 33.5 g/dl (33.0-37.0); MEAN PLATELET VOLUME 9.6 fl (9.6-12.3); MONO # 0.5 10*3/uL (0.1-1.0); NEUT # 5.7 10*3/uL (2.3-7.9); NEUT % 75.4 % (47.0-73.0); PLATELET COUNT AUTOMATED 167 10*3/uL (130-400); RED BLOOD COUNT 4.77 10*6/uL (4.50-5.90); WHITE BLOOD COUNT 7.6 10*3/uL (4.8-10.8)
[2018-11-22 11:51] LABS: INTERNATIONAL NORM RATIO 0.9 (2.0-3.5)
[2018-11-22] MEDS ORDERED: RISPERDAL3 M1 PO (11:55)
[2018-11-22] MEDS ORDERED: ZOLOFT100 MG PO (11:56)
[2018-11-22] MEDS ORDERED: NEURONTIN800 MG PO (11:58)
[2018-11-22 11:59] LABS: ALBUMIN 3.9 gm/dl (3.1-4.5); ALKALINE PHOSPHATASE 61 U/L (45-117); BUN 10 mg/dl (7-24); CHLORIDE 100 mmol/L (98-107); CREATININE 0.65 mg/dL (0.70-1.30); POTASSIUM 4.2 mmol/L (3.5-5.1); SGOT/AST 160 IU/L (3-35); SGPT/ALT 175 U/L (12-78); SODIUM 137 mmol/L (136-145); TOTAL PROTEIN 7.6 gm/dL (6.4-8.2)
[2018-11-22 12:00] VITALS: BP 138/83
[2018-11-22 14:49] LABS: BILIRUBIN NEGATIVE (NEGATIVE); BLOOD NEGATIVE (NEGATIVE); CLARITY CLEAR (CLEAR); COLOR YELLOW (YELLOW); GLUCOSE NEGATIVE (NEGATIVE); KETONE NEGATIVE (NEGATIVE); LEUKO ESTERASE NEGATIVE (NEGATIVE); NITRITE NEGATIVE (NEGATIVE); PH 6.5 (5.0-9.0)
[2018-11-22 14:55] LABS: URINE AMPHETAMINES < 1000 (1000ng/ml); URINE BARBITURATES < 200 (200ng/ml); URINE BENZODIAZEPINES < 200 (200ng/ml); URINE CANNABINOIDS (THC) < 50 (50ng/ml); URINE COCAINE < 300 (300ng/ml); URINE METHADONE < 300 (300ng/ml); URINE OPIATES < 300 (300ng/ml); URINE PHENCYCLIDINE < 25 (25ng/ml)
[2018-11-22 14:58] LABS: BACTERIA 2+; EPITHELIAL CELLS 0-2; RBC 0-2 rbc/hpf (0-2); WBC 0-2 wbc/hpf (0-5)
[2018-11-22 16:00] VITALS: BP 126/82
[2018-11-22 20:00] VITALS: BP 128/89
[2018-11-23] VITALS: BP 101/74
[2018-11-23 08:00] VITALS: BP 120/68
[2018-11-23 12:00] VITALS: BP 126/87
[2018-11-23 16:00] VITALS: BP 131/84
[2018-11-23 20:00] VITALS: BP 128/91
[2018-11-24] VITALS: BP 119/79
[2018-11-24 08:00] VITALS: BP 120/83
[2018-11-24 12:00] VITALS: BP 116/81
[2018-11-24 16:00] VITALS: BP 110/82
[2018-11-24 20:00] VITALS: BP 118/82
[2018-11-25] VITALS: BP 116/86
[2018-11-25 06:13] LABS: HEMATOCRIT 41.3 % (42.0-52.0); HEMOGLOBIN 13.7 g/dl (14.0-18.0); MEAN CORPUSCULAR HGB 32.9 pg (27.0-31.0); MEAN CORPUSCULAR HGB CONC 33.2 g/dl (33.0-37.0); MEAN PLATELET VOLUME 10.8 fl (9.6-12.3); PLATELET COUNT AUTOMATED 169 10*3/uL (130-400); RED BLOOD COUNT 4.17 10*6/uL (4.50-5.90); RED CELL DISTRI WIDTH 14.7 % (0-14.5); WHITE BLOOD COUNT 13.8 10*3/uL (4.8-10.8)
[2018-11-25 06:40] LABS: CREATININE 0.67 mg/dL (0.70-1.30)
[2018-11-25 07:13] LABS: PLATELET SUFFICIENCY NORMAL (NORMAL); TOTAL CELLS COUNTED 100 #CELLS
[2018-11-25 08:00] VITALS: BP 124/75
[2018-11-25] MEDS ORDERED: SINEMET 25-1001 EACH PO (10:25)
[2018-11-25] MEDS ORDERED: PREDNISONE10 MG PO (10:25)
[2018-11-25] MEDS ORDERED: AVPAK AZITHROM250 M1 PO (10:25)
[2018-11-25] MEDS ORDERED: ATARAX,VISTARIL50 MG PO (10:25)
== END 2018-11-25 13:43 | disposition home or self-care (01) | DRG 775 ==
LOC: 4E 09:37
PROVIDERS: Student in an Organized Health Care Education/Training Program; ADMIT Emergency Medicine
DX: F10.129 Alcohol abuse with intoxication, unspecified (principal); F41.9 Anxiety disorder, unspecified; G25.81 Restless legs syndrome; R74.0 Nonspecific elevation of levels of transaminase and lactic acid dehydrogenase [LDH]; D72.810 Lymphocytopenia; F31.9 Bipolar disorder, unspecified; J45.20 Mild intermittent asthma, uncomplicated; D53.9 Nutritional anemia, unspecified; F25.9 Schizoaffective disorder, unspecified; M54.32 Sciatica, left side; M54.31 Sciatica, right side; K76.0 Fatty (change of) liver, not elsewhere classified; E55.9 Vitamin D deficiency, unspecified; F17.210 Nicotine dependence, cigarettes, uncomplicated; R03.0 Elevated blood-pressure reading, without diagnosis of hypertension; D75.89 Other specified diseases of blood and blood-forming organs; J44.1 Chronic obstructive pulmonary disease with (acute) exacerbation; Z71.6 Tobacco abuse counseling; Z83.2 Family history of diseases of the blood and blood-forming organs and certain disorders involving the immune mechanism; Z83.49 Family history of other endocrine, nutritional and metabolic diseases; Z79.899 Other long term (current) drug therapy

== ENCOUNTER 2019-11-06 16:57 | Emergency (ER) | payer OTHER ==
[~2019-11-06] VITALS: Wt 90.7 kg
[~2019-11-06 16:57] MED LIST changes: +AVPAK AZITHROM250 M1 PO; +RISPERDAL3 M1 PO; +SINEMET 25-1001 EACH PO
[2019-11-06] MEDS ORDERED: Motrin,Rufen800 MG PO (18:08)
== END 2019-11-06 18:13 | disposition home or self-care (01) ==
LOC: ED 16:57
DX: S92.302A Fracture of unspecified metatarsal bone(s), left foot, initial encounter for closed fracture (principal); F32.9 Major depressive disorder, single episode, unspecified; F41.9 Anxiety disorder, unspecified; J44.9 Chronic obstructive pulmonary disease, unspecified; Z79.899 Other long term (current) drug therapy; X58.XXXA Exposure to other specified factors, initial encounter; Y93.89 Activity, other specified; Y92.89 Other specified places as the place of occurrence of the external cause; Y99.8 Other external cause status

== ENCOUNTER → 2019-11-19 | Outpatient (CLI) | payer OTHER | END | disposition home or self-care (01) | LOC: RAD 10:21 | PROVIDERS: ATTEND Family Medicine | DX: J44.9 Chronic obstructive pulmonary disease, unspecified (principal) ==

== ENCOUNTER → 2019-11-27 | Outpatient (CLI) | payer OTHER ==
[2019-11-27 16:23] LABS: BUN 6 mg/dl (7-24); CREATININE 0.47 mg/dL (0.70-1.30)
== END | disposition home or self-care (01) ==
LOC: LAB 15:38 → CT 16:00
PROVIDERS: ATTEND Internal Medicine Critical Care Medicine
DX: Z01.818 Encounter for other preprocedural examination (principal); J43.9 Emphysema, unspecified; R91.8 Other nonspecific abnormal finding of lung field; J98.4 Other disorders of lung

== ENCOUNTER → 2019-12-10 | Outpatient (CLI) | payer OTHER ==
[~2019-12-10] MED LIST changes: +SPIRIVA 5 CAPS18 MCG INH; +VENTOLIN 02.5 MG/3 M INH
== END | disposition home or self-care (01) ==
LOC: COVID19 00:55
PROVIDERS: ATTEND Internal Medicine Critical Care Medicine
DX: Z20.828 Contact with and (suspected) exposure to other viral communicable diseases (principal); R91.8 Other nonspecific abnormal finding of lung field

== ENCOUNTER → 2019-12-15 | Day surgery (SDC) | payer OTHER ==
--- NOTE | 2019-12-12 10:09 | NUR ---
PATIENT CALLED AND MADE AWARE THAT HE WOULD HAVE AN EXTENDED STAY FOR HIS BEST INTEREST, A CAB WOULD BE PERMITTED LONG WE COULD CALL AND VERFIY WITH WHOMEVER WOULD BE AT HOME WITH HIM PRIOR TO DISCHARGE. PATIENT VOICED UNDERSTANDING AND STATED THAT HE MAY HAVE SOMEONE THAT COULD COME HE WOULD TRY TO SEE.
[~2019-12-15] VITALS: Ht 187.9 cm; Wt 90.7 kg
[~2019-12-15] MED LIST changes: +NAPROXEN500 MG PO
[2019-12-15 07:46] VITALS: BP 127/74
[2019-12-15 09:00] VITALS: BP 118/76
[2019-12-15 09:15] VITALS: BP 115/80
[2019-12-15 09:30] VITALS: BP 120/72
[2019-12-16 13:09] LABS: ACID FAST SPEC PROCESSING Concentration (.)
[2020-01-10 12:06] LABS: ORGANISM ID, MOLD Final report (.); RESULT 1 Final Identification (.)
[2020-02-02 11:10] LABS: ACID FAST CULTURE Negative (.)
== END | disposition home or self-care (01) ==
LOC: SDC 12-11 08:00
PROVIDERS: ATTEND Internal Medicine Critical Care Medicine
DX: R22.2 Localized swelling, mass and lump, trunk (principal); J44.9 Chronic obstructive pulmonary disease, unspecified; K21.9 Gastro-esophageal reflux disease without esophagitis; F41.9 Anxiety disorder, unspecified; F32.9 Major depressive disorder, single episode, unspecified; Z87.891 Personal history of nicotine dependence; Z79.899 Other long term (current) drug therapy

== ENCOUNTER → 2019-12-29 | Outpatient (CLI) | payer OTHER ==
[2019-12-29 08:43] LABS: INTERNATIONAL NORM RATIO 0.9 (2.0-3.5)
[2019-12-29 09:03] VITALS: BP 118/78
== END | disposition home or self-care (01) ==
LOC: LAB 01:00 → CT 09:00 → LAB 09:00
PROVIDERS: ATTEND Internal Medicine Critical Care Medicine
DX: R91.8 Other nonspecific abnormal finding of lung field (principal); R91.1 Solitary pulmonary nodule

== ENCOUNTER → 2020-01-07 | Outpatient (CLI) | payer OTHER | END | disposition home or self-care (01) | LOC: RAD 15:11 | PROVIDERS: ATTEND Family Medicine | DX: M19.011 Primary osteoarthritis, right shoulder (principal) ==

== ENCOUNTER → 2020-03-05 | Outpatient (CLI) | payer OTHER ==
[~2020-03-05] MED LIST changes: +CLINDAMYCIN HC300 MG PO
== END | disposition home or self-care (01) ==
LOC: CT 10:58
PROVIDERS: ATTEND Internal Medicine Critical Care Medicine
DX: R91.8 Other nonspecific abnormal finding of lung field (principal)

== ENCOUNTER 2020-03-13 19:01 | Emergency (ER) | payer OTHER ==
[~2020-03-13] VITALS: Ht 187.9 cm; Wt 90.7 kg
[~2020-03-13 19:01] MED LIST changes: -CLINDAMYCIN HC300 MG PO
[2020-03-13] MEDS ORDERED: CLINDAMYCIN HC300 MG PO (20:08)
== END 2020-03-13 20:12 | disposition home or self-care (01) ==
LOC: ED 19:01
DX: L02.216 Cutaneous abscess of umbilicus (principal); F12.10 Cannabis abuse, uncomplicated; F17.200 Nicotine dependence, unspecified, uncomplicated; Z79.899 Other long term (current) drug therapy

== ENCOUNTER 2020-04-09 09:15 | Emergency (ER) | payer OTHER ==
[~2020-04-09] VITALS: Wt 90.7 kg
[~2020-04-09 09:15] MED LIST changes: +CLINDAMYCIN HC300 MG PO
== END 2020-04-09 11:58 | disposition home or self-care (01) ==
LOC: ED 09:15
DX: S29.9XXA Unspecified injury of thorax, initial encounter (principal); F41.9 Anxiety disorder, unspecified; F31.9 Bipolar disorder, unspecified; K21.9 Gastro-esophageal reflux disease without esophagitis; J44.9 Chronic obstructive pulmonary disease, unspecified; Z88.8 Allergy status to other drugs, medicaments and biological substances; Z91.018 Allergy to other foods; Z79.899 Other long term (current) drug therapy; F17.200 Nicotine dependence, unspecified, uncomplicated; W18.39XA Other fall on same level, initial encounter; Y93.89 Activity, other specified; Y92.098 Other place in other non-institutional residence as the place of occurrence of the external cause; Y99.8 Other external cause status

== ENCOUNTER 2020-07-02 04:51 | Emergency (ER) | payer OTHER ==
[~2020-07-02] VITALS: Ht 187.9 cm
== END 2020-07-02 06:20 | disposition home or self-care (01) ==
LOC: ED 04:51
DX: S50.02XA Contusion of left elbow, initial encounter (principal); L84 Corns and callosities; F41.9 Anxiety disorder, unspecified; J45.909 Unspecified asthma, uncomplicated; F31.9 Bipolar disorder, unspecified; J44.9 Chronic obstructive pulmonary disease, unspecified; F17.200 Nicotine dependence, unspecified, uncomplicated; Z88.8 Allergy status to other drugs, medicaments and biological substances; Z79.899 Other long term (current) drug therapy; X58.XXXA Exposure to other specified factors, initial encounter; Y93.89 Activity, other specified; Y92.89 Other specified places as the place of occurrence of the external cause; Y99.8 Other external cause status

== ENCOUNTER 2020-10-09 08:09 | Emergency (ER) | payer OTHER ==
[~2020-10-09] VITALS: Ht 187.9 cm; Wt 88.5 kg
[2020-10-09] MEDS ORDERED: CYCLOBENZAPRINE10 MG PO (09:08)
[2020-10-09] MEDS ORDERED: TYLENOL325 M1 PO (09:08)
[2020-10-09] MEDS ORDERED: NAPROXEN250 MG PO (09:08)
== END 2020-10-09 09:12 | disposition home or self-care (01) ==
LOC: ED 08:09
DX: M51.36 Other intervertebral disc degeneration, lumbar region (principal); J44.9 Chronic obstructive pulmonary disease, unspecified; F17.210 Nicotine dependence, cigarettes, uncomplicated; G89.29 Other chronic pain; Z79.899 Other long term (current) drug therapy

== ENCOUNTER → 2021-03-24 | Outpatient (CLI) | payer OTHER ==
[~2021-03-24] MED LIST changes: +NAPROXEN250 MG PO; +TYLENOL325 M1 PO
== END | disposition home or self-care (01) ==
LOC: CT 09:54
PROVIDERS: ATTEND Internal Medicine Critical Care Medicine
DX: J43.8 Other emphysema (principal); R91.8 Other nonspecific abnormal finding of lung field; J30.89 Other allergic rhinitis; Z87.891 Personal history of nicotine dependence; Z68.25 Body mass index [BMI] 25.0-25.9, adult

== ENCOUNTER 2021-06-28 13:43 | Emergency (ER) | payer OTHER ==
[~2021-06-28] VITALS: Ht 185.4 cm; Wt 81.6 kg
== END 2021-06-28 15:50 | disposition home or self-care (01) ==
LOC: ED 13:43
DX: M54.50 Low back pain, unspecified (principal); Z79.899 Other long term (current) drug therapy; Z87.891 Personal history of nicotine dependence

== ENCOUNTER 2021-07-03 06:47 | Emergency (ER) | payer OTHER ==
[~2021-07-03] VITALS: Ht 187.9 cm; Wt 81.6 kg
[2021-07-03] MEDS ORDERED: NEURONTIN800 MG PO (07:54)
== END 2021-07-03 07:31 | disposition home or self-care (01) ==
LOC: ED 06:47
DX: G89.29 Other chronic pain (principal); Z76.0 Encounter for issue of repeat prescription; M54.50 Low back pain, unspecified; Z79.899 Other long term (current) drug therapy; J44.9 Chronic obstructive pulmonary disease, unspecified; F17.210 Nicotine dependence, cigarettes, uncomplicated

== ENCOUNTER → 2021-07-08 | Outpatient (CLI) | payer OTHER | END | disposition home or self-care (01) | LOC: RAD 14:28 | PROVIDERS: ATTEND Internal Medicine | DX: M54.6 Pain in thoracic spine (principal) ==

== ENCOUNTER 2021-07-09 20:55 | Emergency (ER) | payer OTHER | END 2021-07-09 23:45 | disposition left against medical advice (07) | LOC: ED 20:55 | DX: Z53.21 Procedure and treatment not carried out due to patient leaving prior to being seen by health care provider (principal) ==

== ENCOUNTER → 2021-10-07 | Outpatient (CLI) | payer OTHER | END | disposition home or self-care (01) | LOC: RAD 10:25 | PROVIDERS: ATTEND Nurse Practitioner Family | DX: M25.751 Osteophyte, right hip (principal) ==

== ENCOUNTER → 2021-11-02 | Outpatient (CLI) | payer OTHER | END | disposition home or self-care (01) | LOC: MRI 10:00 | PROVIDERS: ATTEND Nurse Practitioner Family | DX: M54.6 Pain in thoracic spine (principal) ==

== ENCOUNTER → 2022-01-11 | Outpatient (CLI) | payer OTHER | END | disposition home or self-care (01) | LOC: RAD 13:44 | PROVIDERS: ATTEND Pain Medicine Interventional Pain Medicine | DX: M17.11 Unilateral primary osteoarthritis, right knee (principal) ==

== ENCOUNTER 2022-01-16 09:34 | Emergency (ER) | payer OTHER | END 2022-01-16 12:47 | disposition left against medical advice (07) | LOC: ED 09:34 | DX: Z53.21 Procedure and treatment not carried out due to patient leaving prior to being seen by health care provider (principal) ==

== ENCOUNTER → 2022-02-21 | Outpatient (CLI) | payer OTHER | END | disposition home or self-care (01) | LOC: MRI 00:51 | PROVIDERS: ATTEND Registered Nurse | DX: M47.814 Spondylosis without myelopathy or radiculopathy, thoracic region (principal); M51.27 Other intervertebral disc displacement, lumbosacral region; M51.26 Other intervertebral disc displacement, lumbar region; M48.061 Spinal stenosis, lumbar region without neurogenic claudication; M51.9 Unspecified thoracic, thoracolumbar and lumbosacral intervertebral disc disorder ==

== ENCOUNTER → 2022-06-15 | Outpatient (CLI) | payer MEDICAID | END | disposition home or self-care (01) | LOC: CT 05-26 13:00 | PROVIDERS: ATTEND Internal Medicine Critical Care Medicine | DX: J43.9 Emphysema, unspecified (principal); R91.8 Other nonspecific abnormal finding of lung field; Z87.891 Personal history of nicotine dependence ==

== ENCOUNTER 2022-08-18 14:34 | Emergency (ER) | payer MEDICAID ==
[~2022-08-18] VITALS: Wt 90.7 kg
[2022-08-18 15:42] LABS: BASO # 0.1 10*3/uL (0.0-0.1); BASO % 0.6 % (0.0-1.0); EOS # 0.5 10*3/uL (0.0-0.4); HEMATOCRIT 41.1 % (42.0-52.0); LYMPH % 21.2 % (27.0-41.0); MEAN CELL VOLUME 94.5 fl (80.0-94.0); MEAN CORPUSCULAR HGB 32.4 pg (27.0-31.0); MEAN CORPUSCULAR HGB CONC 34.3 g/dl (33.0-37.0); MEAN PLATELET VOLUME 9.3 fl (9.6-12.3); MONO # 0.7 10*3/uL (0.1-1.0); MONO % 7.2 % (3.0-9.0); NEUT # 6.2 10*3/uL (2.3-7.9); NEUT % 65.7 % (47.0-73.0); PLATELET COUNT AUTOMATED 286 10*3/uL (130-400); RED BLOOD COUNT 4.35 10*6/uL (4.50-5.90); RED CELL DISTRI WIDTH 13.5 % (0-14.5); WHITE BLOOD COUNT 9.5 10*3/uL (4.8-10.8)
[2022-08-18 16:18] LABS: ALKALINE PHOSPHATASE 50 U/L (46-116); BUN 19 mg/dl (9-23); CHLORIDE 108 mmol/L (98-107); LIPASE 32 U/L (12-53); POTASSIUM 3.7 mmol/L (3.4-5.1); SGPT/ALT 11 U/L (10-49); TOTAL PROTEIN 6.3 gm/dL (6.0-8.0)
[2022-08-18] MEDS ORDERED: ZITHROMAX250 MG PO (18:16)
[2022-08-18] MEDS ORDERED: PREDNISONE50 MG PO (18:16)
== END 2022-08-18 18:58 | disposition home or self-care (01) ==
LOC: ED 14:34
PROVIDERS: Emergency Medicine
DX: J20.9 Acute bronchitis, unspecified (principal); J44.0 Chronic obstructive pulmonary disease with (acute) lower respiratory infection; R09.1 Pleurisy; F17.200 Nicotine dependence, unspecified, uncomplicated; Z91.048 Other nonmedicinal substance allergy status; Z79.899 Other long term (current) drug therapy

== ENCOUNTER 2022-10-16 21:50 | Emergency (ER) | payer MEDICAID ==
[~2022-10-16] VITALS: Ht 187.9 cm; Wt 83.9 kg
[~2022-10-16 21:50] MED LIST changes: +PREDNISONE50 MG PO; +ZITHROMAX250 MG PO
== END 2022-10-17 00:10 | disposition home or self-care (01) ==
LOC: ED 21:50
DX: M48.061 Spinal stenosis, lumbar region without neurogenic claudication (principal); F32.A Depression, unspecified; F41.9 Anxiety disorder, unspecified; J44.9 Chronic obstructive pulmonary disease, unspecified; K21.9 Gastro-esophageal reflux disease without esophagitis; Z88.8 Allergy status to other drugs, medicaments and biological substances; Z98.890 Other specified postprocedural states; F10.10 Alcohol abuse, uncomplicated; F12.10 Cannabis abuse, uncomplicated; F17.200 Nicotine dependence, unspecified, uncomplicated

== ENCOUNTER → 2023-07-12 | Day surgery (SDC) | payer MEDICAID ==
[~2023-07-12] VITALS: Ht 187.9 cm; Wt 83.9 kg
[~2023-07-12] MED LIST changes: +BUPIVACAINE 0.5% 10 ML VIAL ONE; +CYMBALTA60 MG PO; +HYDROCODONE-AC1 EAC1 PO; +Ketamine Hydrochloride 50 MG/5 ML SYRINGE IV ONE; +Lactated Ringer's Solution 1,000 ML IV ONE; +Lidocaine Hydrochloride 30 ML VIAL ONE; +Midazolam Hydrochloride 2 MG/2 ML VIAL IV ONE; +NAPROSYN500 MG PO; +PROPOFOL 200 MG/20 ML VIAL IV ONE; +SINGULAIR10 M1 PO; +STRATTERA60 MG PO; +TOPCARE OMEPRAZ20 MG PO; +ceFAZolin sodium/sodium chlor 10 ML IV ONE; +fentaNYL CITRATE 100 MCG/2 ML VIAL IV ONE
[2023-07-12 07:20] VITALS: BP 119/77
[2023-07-12 09:45] VITALS: BP 111/76
[2023-07-12 10:00] VITALS: BP 115/84
[2023-07-12 10:13] VITALS: BP 112/79
== END | disposition home or self-care (01) ==
LOC: SDC 07-09 09:30
PROVIDERS: ATTEND Orthopaedic Surgery
DX: G56.01 Carpal tunnel syndrome, right upper limb (principal); G56.21 Lesion of ulnar nerve, right upper limb; J44.9 Chronic obstructive pulmonary disease, unspecified; K21.9 Gastro-esophageal reflux disease without esophagitis; F41.9 Anxiety disorder, unspecified; F31.9 Bipolar disorder, unspecified; F90.9 Attention-deficit hyperactivity disorder, unspecified type; F17.210 Nicotine dependence, cigarettes, uncomplicated; Z98.890 Other specified postprocedural states; Z79.899 Other long term (current) drug therapy; Z91.018 Allergy to other foods

== ENCOUNTER → 2023-07-19 | Outpatient (CLI) | payer MEDICAID ==
[~2023-07-19] MED LIST changes: -BUPIVACAINE 0.5% 10 ML VIAL ONE; -Ketamine Hydrochloride 50 MG/5 ML SYRINGE IV ONE; -Lactated Ringer's Solution 1,000 ML IV ONE; -Lidocaine Hydrochloride 30 ML VIAL ONE; -Midazolam Hydrochloride 2 MG/2 ML VIAL IV ONE; -PROPOFOL 200 MG/20 ML VIAL IV ONE; -ceFAZolin sodium/sodium chlor 10 ML IV ONE; -fentaNYL CITRATE 100 MCG/2 ML VIAL IV ONE
== END | disposition home or self-care (01) ==
LOC: CT 10:50
PROVIDERS: ATTEND Internal Medicine Critical Care Medicine
DX: J43.9 Emphysema, unspecified (principal); I25.10 Atherosclerotic heart disease of native coronary artery without angina pectoris; R91.8 Other nonspecific abnormal finding of lung field; N20.0 Calculus of kidney; M47.814 Spondylosis without myelopathy or radiculopathy, thoracic region; M41.86 Other forms of scoliosis, lumbar region

== ENCOUNTER → 2023-08-03 | Outpatient (CLI) | payer MEDICAID | LOC: LAB 17:22 | PROVIDERS: ATTEND Internal Medicine Critical Care Medicine | DX: J44.9 Chronic obstructive pulmonary disease, unspecified (principal); R40.0 Somnolence; R91.8 Other nonspecific abnormal finding of lung field; J30.89 Other allergic rhinitis; G25.81 Restless legs syndrome ==

== ENCOUNTER 2023-09-08 06:44 | Emergency (ER) | payer MEDICAID ==
[~2023-09-08] VITALS: Ht 187.9 cm; Wt 86.2 kg
[2023-09-08 08:12] LABS: URINE AMPHETAMINES Positive (1000ng/ml); URINE BARBITURATES Negative (200ng/ml); URINE BENZODIAZEPINES Negative (200ng/ml); URINE CANNABINOIDS (THC) Negative (50ng/ml); URINE COCAINE Negative (300ng/ml); URINE METHADONE Negative (300ng/ml); URINE OPIATES Negative (300ng/ml); URINE PHENCYCLIDINE Negative (25ng/ml)
== END 2023-09-08 08:41 | disposition home or self-care (01) ==
LOC: ED 06:44
PROVIDERS: Emergency Medicine
DX: K62.89 Other specified diseases of anus and rectum (principal); Z02.83 Encounter for blood-alcohol and blood-drug test; F41.9 Anxiety disorder, unspecified; I10 Essential (primary) hypertension; F32.A Depression, unspecified; J44.9 Chronic obstructive pulmonary disease, unspecified; K21.9 Gastro-esophageal reflux disease without esophagitis; E78.00 Pure hypercholesterolemia, unspecified; F10.10 Alcohol abuse, uncomplicated; F12.10 Cannabis abuse, uncomplicated; F17.200 Nicotine dependence, unspecified, uncomplicated; Z98.890 Other specified postprocedural states

== ENCOUNTER 2023-12-01 13:07 | Emergency (ER) | payer MEDICAID ==
[~2023-12-01] VITALS: Ht 185.4 cm; Wt 86.2 kg
[2023-12-01] MEDS ORDERED: methylPREDNISolone sod succ 125 MG VIAL IV ONE (13:55)
[2023-12-01] MEDS ORDERED: Albuterol Sulfate 2.5 MG/3 ML VIAL NEB ONE (13:55)
[2023-12-01] MEDS ORDERED: MAGNESIUM SULFATE 50 ML IV ONE (13:55)
[2023-12-01] MEDS ORDERED: SODIUM CHLORIDE 0.9% 1,000 ML IV ONE (13:55)
[2023-12-01 14:11] LABS: BASO # 0.1 10*3/uL (0.0-0.1); BASO % 0.6 % (0.0-1.0); EOS # 0.5 10*3/uL (0.0-0.4); EOS % 5.3 % (1.0-4.0); HEMATOCRIT 39.2 % (42.0-52.0); LYMPH # 1.8 10*3/uL (1.3-4.4); LYMPH % 18.7 % (27.0-41.0); MEAN CELL VOLUME 94.9 fl (80.0-94.0); MEAN CORPUSCULAR HGB 32.7 pg (27.0-31.0); MEAN CORPUSCULAR HGB CONC 34.4 g/dl (33.0-37.0); MEAN PLATELET VOLUME 8.8 fl (9.6-12.3); MONO # 0.5 10*3/uL (0.1-1.0); MONO % 5.5 % (3.0-9.0); NEUT # 6.5 10*3/uL (2.3-7.9); NEUT % 69.4 % (47.0-73.0); PLATELET COUNT AUTOMATED 363 10*3/uL (130-400); RED BLOOD COUNT 4.13 10*6/uL (4.50-5.90); RED CELL DISTRI WIDTH 14.1 % (0-14.5); WHITE BLOOD COUNT 9.4 10*3/uL (4.8-10.8)
[2023-12-01 14:22] LABS: BUN 10 mg/dl (9-23); CHLORIDE 108 mmol/L (98-107); POTASSIUM 3.6 mmol/L (3.4-5.1)
[2023-12-01] MEDS ORDERED: PREDNISONE20 M1 PO (14:36)
[2023-12-01] MEDS ORDERED: AVPAK AZITHROM250 M1 PO (14:36)
== END 2023-12-01 15:43 | disposition home or self-care (01) ==
LOC: ED 13:07
PROVIDERS: Emergency Medicine
DX: J45.901 Unspecified asthma with (acute) exacerbation (principal); F32.A Depression, unspecified; F41.9 Anxiety disorder, unspecified; K21.9 Gastro-esophageal reflux disease without esophagitis; J44.9 Chronic obstructive pulmonary disease, unspecified; F10.10 Alcohol abuse, uncomplicated; F12.10 Cannabis abuse, uncomplicated; F17.290 Nicotine dependence, other tobacco product, uncomplicated; Z98.890 Other specified postprocedural states

== ENCOUNTER → 2024-12-26 | Outpatient (CLI) | payer MEDICAID ==
[~2024-12-26] MED LIST changes: +PREDNISONE20 M1 PO
[2024-12-26 15:38] LABS: BASO # 0.1 10*3/uL (0.0-0.1); BASO % 0.4 % (0.0-1.0); EOS # 0.3 10*3/uL (0.0-0.4); EOS % 2.2 % (1.0-4.0); MEAN CELL VOLUME 96.2 fl (80.0-94.0); MEAN CORPUSCULAR HGB 32.3 pg (27.0-31.0); MEAN PLATELET VOLUME 9.2 fl (9.6-12.3); MONO # 0.9 10*3/uL (0.1-1.0); MONO % 7.3 % (3.0-9.0); NEUT # 9.5 10*3/uL (2.3-7.9); NEUT % 76.0 % (47.0-73.0); NUCLEATED RED BLOOD CELL 0.0 % (0.0-0.0); NUCLEATED RED BLOOD CELL 0.0 10*3/uL (0.0-0.0); PLATELET COUNT AUTOMATED 349 10*3/uL (130-400); RED CELL DISTRI WIDTH 13.6 % (0-14.5)
[2024-12-26 16:03] LABS: BUN 12 mg/dl (9-23); LDL CHOLESTEROL 138 mg/dL (9-159); SGPT/ALT 10 U/L (5-49); T3 UPTAKE 33.8 % (22.4-36.7); THYROXINE (T4) TOTAL 6.7 ug/dl (4.5-10.9)
[2024-12-26 16:25] LABS: VITAMIN D, 25-HYDROXY 23.5 ng/mL (30-100)
== END | disposition home or self-care (01) ==
LOC: LAB 15:03
DX: E53.9 Vitamin B deficiency, unspecified (principal); E55.9 Vitamin D deficiency, unspecified; R53.83 Other fatigue; Z79.899 Other long term (current) drug therapy

== ENCOUNTER → 2025-02-03 | Day surgery (SDC) | payer MEDICAID ==
[2025-02-02 10:27] LABS: BUN 10 mg/dl (9-23)
[~2025-02-03] VITALS: Ht 185.4 cm; Wt 85.9 kg
[~2025-02-03] MED LIST changes: +ACETAMINOPHEN 100 ML IV ONE; +Lactated Ringer's Solution 1,000 ML IV ONE; +Lidocaine Hydrochloride 2% 5 ML SDV IM ONE; +Lidocaine Hydrochloride 30 ML VIAL ONE; +Midazolam Hydrochloride 2 MG/2 ML VIAL IV ONE; +PERCOCET 5-3251 EACH PO; +PROPOFOL 200 MG/20 ML VIAL IV ONE; +RISPERDAL4 M1 PO; +TAMSULOSIN HCL0.4 MG PO; +VARENICLINE TART1 MG PO; +ceFAZolin sodium 2GM/20ML IV ONE; +ceFAZolin sodium/sodium chlor 20 ML IV ONE
[2025-02-03 09:20] VITALS: BP 123/78
[2025-02-03 12:27] VITALS: BP 116/76
[2025-02-03 12:41] VITALS: BP 106/77
[2025-02-03 12:54] VITALS: BP 107/76
== END | disposition home or self-care (01) ==
LOC: SDC 01-30 12:30
PROVIDERS: ATTEND Orthopaedic Surgery
DX: G56.02 Carpal tunnel syndrome, left upper limb (principal); G56.22 Lesion of ulnar nerve, left upper limb; G62.9 Polyneuropathy, unspecified; F41.9 Anxiety disorder, unspecified; J44.89 Other specified chronic obstructive pulmonary disease; J43.9 Emphysema, unspecified; F17.200 Nicotine dependence, unspecified, uncomplicated; E78.00 Pure hypercholesterolemia, unspecified; I20.9 Angina pectoris, unspecified; F31.9 Bipolar disorder, unspecified; G47.30 Sleep apnea, unspecified; M19.90 Unspecified osteoarthritis, unspecified site; Z98.890 Other specified postprocedural states; Z79.899 Other long term (current) drug therapy; Z88.8 Allergy status to other drugs, medicaments and biological substances